=== PATIENT | female | born 1940 | race Caucasian/White ===

== ENCOUNTER 2018-03-27 18:11 | Observation (INO) | payer MEDICARE ==
[~2018-03-27] VITALS: Ht 162.6 cm; Wt 57.7 kg
[2018-03-27 18:56] LABS: BASOPHILS % (AUTO) 0.5 % (0.0-5.0); EOSINOPHILS % (AUTO) 0.7 % (0.0-8.0); LYMPHOCYTES % (AUTO) 8.6 % (21.0-51.0); MEAN CORPUSCULAR HEMOGLOBIN 29.4 pg (27.0-33.0); MEAN CORPUSCULAR HGB CONC 34.1 g/dL (32.0-36.0); MEAN CORPUSCULAR VOLUME 86.4 fL (79-99); MONOCYTES % (AUTO) 5.7 % (3.0-13.0); NEUTROPHILS % (AUTO) 84.5 % (40.0-77.0); PLATELET COUNT (AUTO) 211 K/uL (130-400); RED BLOOD CELL COUNT(AUTO) 4.98 MIL/uL (4.00-5.50); RED CELL DISTRIBUTION WIDTH 14.7 % (11.0-15.5); WHITE BLOOD COUNT (AUTO) 12.6 K/uL (4.8-10.8)
[2018-03-27 19:08] LABS: CREATININE 0.8 mg/dL (0.5-1.5); POTASSIUM 3.3 mmol/L (3.5-5.1)
[2018-03-27 19:12] LABS: ALBUMIN 3.1 g/dL (3.5-5.0); BILIRUBIN,TOTAL 0.3 mg/dL (0.2-1.0); TOTAL PROTEIN, SERUM 6.8 g/dL (6.0-8.3)
[2018-03-27 19:33] LABS: INR 0.94 (0.85-1.15); PARTIAL THROMBOPLASTIN TIME 24.5 SEC (26.3-35.5); PROTHROMBIN TIME 9.9 SEC (9.6-11.6)
[2018-03-27] MEDS ORDERED: ONDANSETRON HCL 4 MG/2 ML VIAL ONE (19:33)
[2018-03-27 19:49] LABS: BILIRUBIN,URINE Negative (NEGATIVE); COLOR,URINE Yellow (YELLOW); GLUCOSE, URINE (UA) Negative (NEGATIVE); KETONES,URINE Negative (NEGATIVE); LEUKOCYTE ESTERASE ,URINE Negative (NEGATIVE); NITRATE,URINE Negative (NEGATIVE); OCCULT BLOOD,URINE Nonhemolyzed Trace (NEGATIVE); PROTEIN,URINE Negative (NEGATIVE)
[2018-03-27 19:58] LABS: APPEARANCE,URINE HAZY (CLEAR)
[2018-03-27 19:59] LABS: BACTERIA,URINE Many /HPF (None Seen); WBC,URINE 0-1 /HPF (0-1)
[2018-03-27 20:00] LABS: AMORPHOUS SEDIMENT,UR Few /LPF (None Seen); SQUAMOUS EPITHELIAL CELL,UR None Seen /HPF (0-2)
[2018-03-27] MEDS ORDERED: CEFTRIAXONE SODIUM 1 GM ONE (20:52)
[2018-03-27] MEDS ORDERED: POTASSIUM CHLORIDE 20 MEQ ERTAB PO ONE (20:52)
[2018-03-27] MEDS ORDERED: SODIUM CHLORIDE 0.9% 50 ML IV ONE (20:53)
[2018-03-27] MEDS ORDERED: ACETAMINOPHEN 325 MG TAB PO PRN ×2 (23:15)
[2018-03-27] MEDS ORDERED: CEFTRIAXONE SODIUM 1 GM IV SCH (23:15)
[2018-03-27] MEDS ORDERED: ONDANSETRON HCL 4 MG/2 ML VIAL IV PRN (23:15)
[2018-03-27] MEDS ORDERED: MORPHINE SULFATE 2 MG/ML 1ML SYG IV PRN (23:15)
[2018-03-28 00:47] VITALS: BP 172/86
[2018-03-28 03:00] VITALS: BP 168/84
[2018-03-28] MEDS ORDERED: ESCI10TA54 PO (03:28)
[2018-03-28] MEDS ORDERED: LISI10TA7 PO (03:30)
[2018-03-28] MEDS ORDERED: SIMV40TA5 PO (03:30)
[2018-03-28 08:00] VITALS: BP 102/64
[2018-03-28] MEDS ORDERED: ENOXAPARIN SODIUM 30 MG/0.3 ML SQ SCH (09:00)
[2018-03-28] MEDS ORDERED: FAMOTIDINE/PF 20 MG/2 ML VIAL IV SCH (09:00)
[2018-03-28] MEDS ORDERED: ATORVASTATIN CALCIUM 20 MG TABLET PO SCH (09:00)
[2018-03-28] MEDS ORDERED: ASPIRIN 81MG TAB.CHEW PO SCH (09:00)
[2018-03-28 12:00] VITALS: BP 155/81
--- NOTE | 2018-03-28 15:00 | NUR ---
PATIENT INSISTING SHE WANTS TO GO AMA. REFUSED MRI / 2D ECHO - DR. BARBER INFORMED AND DR. SENA INFORMED. IV DISCONTINUED WITH INNER CANNULA INTACT. INFORMED PATIENT REGARDING RISKS LEAVING AMA. PATIENT VERBALIZED INSTRUCTIONS/ TEACH BACK. PATIENT INFORMED TO FOLLOW UP WITH PCP AND CONTINUE MEDICATIONS PRESCRIBED.
== END 2018-03-28 16:40 | disposition left against medical advice (07) ==
LOC: EDH 18:11 → EDHIP 22:00 → 3BH 23:28
PROVIDERS: ADMIT Internal Medicine; ATTEND Internal Medicine
DX: R55 Syncope and collapse (principal); E78.5 Hyperlipidemia, unspecified; I10 Essential (primary) hypertension; Z72.0 Tobacco use; Z82.49 Family history of ischemic heart disease and other diseases of the circulatory system; Z86.73 Personal history of transient ischemic attack (TIA), and cerebral infarction without residual deficits
CPT/HCPCS: 36415; 70450; 71045; 80053; 81001; 82550; 84484 ×2; 85025; 85610; 85730; 93005; 93880; 97116; 97161; 99284; G0378 ×19; G8978; G8979; G8980; G8981; G8982; G8983; J0696; J2405; J1650; J3490

== ENCOUNTER 2020-10-25 01:28 | Inpatient (IN) | payer MEDICARE ==
[2020-10-25] VITALS (10 sets, daily range): BP systolic 103–157; BP diastolic 57–87
[~2020-10-25] VITALS: Ht 165.1 cm; Wt 53.5 kg
[~2020-10-25 01:28] MED LIST: ESCI-8 PO; LISI10TA24 PO; SIMV-46 PO
[2020-10-25 02:08] LABS: BASOPHILS % (AUTO) 0.4 % (0.0-5.0); EOSINOPHILS % (AUTO) 0.1 % (0.0-8.0); HEMATOCRIT 37.9 % (36-48); LYMPHOCYTES % (AUTO) 10.7 % (21.0-51.0); MEAN CORPUSCULAR HGB CONC 32.5 g/dL (32.0-36.0); MONOCYTES % (AUTO) 11.7 % (3.0-13.0); NEUTROPHILS % (AUTO) 76.7 % (40.0-77.0); PLATELET COUNT (AUTO) 427 K/uL (130-400); RED BLOOD CELL COUNT(AUTO) 5.12 MIL/uL (4.00-5.50); RED CELL DISTRIBUTION WIDTH 16.8 % (11.0-15.5); WHITE BLOOD COUNT (AUTO) 13.4 K/uL (4.8-10.8)
[2020-10-25 02:18] LABS: CARBON DIOXIDE 27 mmol/L (21-32); CHLORIDE 99 mmol/L (101-111); CREATININE 0.7 mg/dL (0.5-1.5); GLOMERULAR FILTR. RATE CALC 85 mL/min (>60); GLUCOSE,RANDOM 146 mg/dL (70-105); POTASSIUM 3.7 mmol/L (3.5-5.1); SODIUM SERUM 138 mmol/L (136-145); UREA NITROGEN, BLOOD 22 mg/dL (7-18)
[2020-10-25 02:23] LABS: ALANINE AMINOTRANSFERASE 12 U/L (12-78); ALBUMIN 2.8 g/dL (3.5-5.0); ASPARTATE AMINOTRANSFERASE 10 U/L (10-37); BILIRUBIN,TOTAL 0.6 mg/dL (0.2-1.0); CREATINE KINASE, TOTAL 21 U/L (21-232); TOTAL PROTEIN, SERUM 5.9 g/dL (6.0-8.3)
[2020-10-25 02:27] LABS: LIPASE < 50 U/L (114-286)
[2020-10-25 02:33] LABS: PLATELET MORPHOLOGY PLT CLUMPS PRESENT
[2020-10-25] MEDS ORDERED: 0.9%NACL 1000ML 1,000 ML IV ONE (03:30)
[2020-10-25] MEDS ORDERED: MORPHINE 4 MG SYG IV ONE (03:30)
[2020-10-25] MEDS ORDERED: ONDANSETRON 4MG INJ IVP ONE (03:30)
[2020-10-25 04:54] LABS: APPEARANCE,URINE Clear (CLEAR); BILIRUBIN,URINE Moderate (NEGATIVE); COLOR,URINE Dark Yellow (YELLOW); GLUCOSE, URINE (UA) Negative (NEGATIVE); KETONES,URINE >=80 mg/dL (NEGATIVE); LEUKOCYTE ESTERASE ,URINE Small (NEGATIVE); NITRATE,URINE Positive (NEGATIVE); OCCULT BLOOD,URINE Negative (NEGATIVE); PH,URINE 5.5 (5.0-8.0); PROTEIN,URINE POS 1+ mg/dL (NEGATIVE)
[2020-10-25] MEDS ORDERED: DEXTROSE 5 % AND 0.9 % NACL 1,000 ML IV SCH (05:30)
[2020-10-25] MEDS ORDERED: ONDANSETRON 4MG INJ IVP PRN (05:30)
[2020-10-25 06:01] LABS: BASOPHILS % (AUTO) 0.3 % (0.0-5.0); EOSINOPHILS % (AUTO) 3.4 % (0.0-8.0); HEMATOCRIT 35.8 % (36-48); LYMPHOCYTES % (AUTO) 9.7 % (21.0-51.0); MEAN CORPUSCULAR HEMOGLOBIN 24.2 pg (27.0-33.0); MEAN CORPUSCULAR HGB CONC 31.8 g/dL (32.0-36.0); MEAN CORPUSCULAR VOLUME 75.8 fL (79-99); PLATELET COUNT (AUTO) 338 K/uL (130-400); RED BLOOD CELL COUNT(AUTO) 4.72 MIL/uL (4.00-5.50); RED CELL DISTRIBUTION WIDTH 16.9 % (11.0-15.5); WHITE BLOOD COUNT (AUTO) 10.9 K/uL (4.8-10.8)
[2020-10-25 06:03] LABS: BACTERIA,URINE Many /HPF (None Seen); RBC,URINE 0-1 /HPF (0-1); SQUAMOUS EPITHELIAL CELL,UR 0-2 /HPF (0-2)
[2020-10-25] MEDS: LEVOFLOXACIN 500 MG/D5W 100 ML 100 ML IV SCH (06:13)
[2020-10-25 06:20] LABS: ALBUMIN 2.4 g/dL (3.5-5.0); BILIRUBIN,TOTAL 0.5 mg/dL (0.2-1.0); CREATININE 0.6 mg/dL (0.5-1.5); PHOSPHORUS 3.8 mg/dL (2.5-4.9); POTASSIUM 3.4 mmol/L (3.5-5.1); TOTAL PROTEIN, SERUM 5.5 g/dL (6.0-8.3)
[2020-10-25 07:35] LABS: HEMOGLOBIN A1C 5.6 % (4.0-6.0)
[2020-10-25] MEDS: ENOXAPARIN SODIUM 30 MG/0.3 ML SQ SCH ×2 (07:56→09:00)
[2020-10-25] MEDS: METRONIDAZOLE 500MG/100ML BAG 100 ML IVPB SCH ×3 (07:56→22:35)
[2020-10-25] MEDS: MORPHINE 2 MG SYG IVP PRN ×2 (09:45→16:40)
[2020-10-25] MEDS ORDERED: DOCUSATE SODIUM 100 MG CAP PO SCH (14:30)
[2020-10-25] MEDS: DEXTROSE 5 % AND 0.9 % NACL 1,000 ML IV SCH ×2 (18:25→22:35)
[2020-10-26] VITALS: BP 134/68
[2020-10-26 04:05] VITALS: BP 117/72
[2020-10-26] MEDS: LEVOFLOXACIN 500 MG/D5W 100 ML 100 ML IV SCH (04:53)
[2020-10-26] MEDS: DEXTROSE 5 % AND 0.9 % NACL 1,000 ML IV SCH ×3 (04:53→23:30)
[2020-10-26] MEDS: METRONIDAZOLE 500MG/100ML BAG 100 ML IVPB SCH ×3 (06:01→22:29)
[2020-10-26 08:00] VITALS: BP 147/72
[2020-10-26] MEDS: DOCUSATE SODIUM 100 MG CAP PO PRN (08:56)
[2020-10-26 12:00] VITALS: BP 113/71
[2020-10-26] MEDS: MORPHINE 2 MG SYG IVP PRN ×2 (12:54→19:30)
[2020-10-26] MEDS: BISACODYL 10 MG SUPP.RECT RC PRN (15:08)
[2020-10-26] MEDS ORDERED: PEG 3350/NA SULF,BICARB,CL/KCL 4000 ML SOLN PO SCH (15:30)
[2020-10-26 16:00] VITALS: BP 143/79
[2020-10-26 20:00] VITALS: BP 160/74
[2020-10-26] MEDS: CEFTRIAXONE 1G VIAL IVP SCH (20:27)
[2020-10-27] VITALS (7 sets, daily range): BP systolic 118–166; BP diastolic 62–83
[2020-10-27] MEDS: MORPHINE 2 MG SYG IVP PRN ×3 (04:16→18:18)
[2020-10-27] MEDS: LEVOFLOXACIN 500 MG/D5W 100 ML 100 ML IV SCH (04:17)
[2020-10-27] MEDS: BISACODYL 10 MG SUPP.RECT RC PRN (04:17)
[2020-10-27 05:30] LABS: HEMATOCRIT 34.7 % (36-48)
[2020-10-27] MEDS: METRONIDAZOLE 500MG/100ML BAG 100 ML IVPB SCH ×3 (06:13→22:10)
[2020-10-27] MEDS: DEXTROSE 5 % AND 0.9 % NACL 1,000 ML IV SCH ×3 (06:13→23:55)
[2020-10-27] MEDS: ENOXAPARIN SODIUM 30 MG/0.3 ML SQ SCH (09:00)
[2020-10-27] MEDS ORDERED: PEG 3350/NA SULF,BICARB,CL/KCL 4000 ML SOLN PO ONE (18:30)
[2020-10-27] MEDS: CEFTRIAXONE 1G VIAL IVP SCH (20:24)
[2020-10-27] MEDS: DOCUSATE SODIUM 100 MG CAP PO PRN (22:10)
[2020-10-28] MEDS: MORPHINE 2 MG SYG IVP PRN ×3 (03:08→20:45)
[2020-10-28 04:00] VITALS: BP 120/68
[2020-10-28] MEDS: DEXTROSE 5 % AND 0.9 % NACL 1,000 ML IV SCH ×2 (06:22→23:30)
[2020-10-28] MEDS: METRONIDAZOLE 500MG/100ML BAG 100 ML IVPB SCH ×3 (06:22→23:13)
[2020-10-28] MEDS: LEVOFLOXACIN 500 MG/D5W 100 ML 100 ML IV SCH (06:22)
[2020-10-28 07:35] VITALS: BP 160/71
[2020-10-28] MEDS: ENOXAPARIN SODIUM 30 MG/0.3 ML SQ SCH (09:56)
[2020-10-28 11:22] VITALS: BP 123/69
[2020-10-28] MEDS ORDERED: MAGNESIUM CITRATE 296 ML SOLUTION PO ONE (13:30)
[2020-10-28] MEDS: LACTULOSE 20 GM/30 ML UDCUP PO SCH ×2 (13:30→19:30)
[2020-10-28 15:25] VITALS: BP 125/66
[2020-10-28 20:00] VITALS: BP 140/62
[2020-10-28] MEDS: CEFTRIAXONE 1G VIAL IVP SCH (20:45)
[2020-10-29 00:03] VITALS: BP 133/81
[2020-10-29] MEDS: LACTULOSE 20 GM/30 ML UDCUP PO SCH ×4 (01:08→17:33)
[2020-10-29 03:52] VITALS: BP 140/76
[2020-10-29] MEDS: LEVOFLOXACIN 500 MG/D5W 100 ML 100 ML IV SCH (04:32)
[2020-10-29] MEDS: METRONIDAZOLE 500MG/100ML BAG 100 ML IVPB SCH ×3 (05:30→20:53)
[2020-10-29] MEDS: DEXTROSE 5 % AND 0.9 % NACL 1,000 ML IV SCH ×3 (05:30→20:55)
[2020-10-29 08:47] VITALS: BP 144/77
[2020-10-29] MEDS: ENOXAPARIN SODIUM 30 MG/0.3 ML SQ SCH (09:00)
[2020-10-29 11:17] VITALS: BP 142/83
[2020-10-29 16:01] VITALS: BP 153/72
[2020-10-29] MEDS ORDERED: MAGNESIUM CITRATE 296 ML SOLUTION PO ONE (16:30)
[2020-10-29] MEDS: CEFTRIAXONE 1G VIAL IVP SCH (19:38)
[2020-10-29 20:00] VITALS: BP 141/60
[2020-10-29] MEDS: MORPHINE 2 MG SYG IVP PRN (20:54)
[2020-10-30 00:16] VITALS: BP 108/69
[2020-10-30] MEDS: LACTULOSE 20 GM/30 ML UDCUP PO SCH ×4 (01:30→17:41)
[2020-10-30 04:00] VITALS: BP 153/82
[2020-10-30 04:59] LABS: HEMATOCRIT 33.2 % (36-48); MEAN CORPUSCULAR HEMOGLOBIN 24.2 pg (27.0-33.0); MEAN CORPUSCULAR HGB CONC 32.2 g/dL (32.0-36.0); MEAN CORPUSCULAR VOLUME 75.1 fL (79-99); RED BLOOD CELL COUNT(AUTO) 4.42 MIL/uL (4.00-5.50); WHITE BLOOD COUNT (AUTO) 10.4 K/uL (4.8-10.8)
[2020-10-30 05:24] LABS: CREATININE 0.6 mg/dL (0.5-1.5); MAGNESIUM 1.7 mg/dL (1.80-2.40)
[2020-10-30] MEDS: LEVOFLOXACIN 500 MG/D5W 100 ML 100 ML IV SCH (05:32)
[2020-10-30 05:38] LABS: POTASSIUM 2.1 mmol/L (3.5-5.1)
[2020-10-30] MEDS: METRONIDAZOLE 500MG/100ML BAG 100 ML IVPB SCH ×3 (06:42→22:05)
[2020-10-30] MEDS ORDERED: POTASSIUM CHLORIDE 10% ELIXIR 20 MEQ/15 ML UDCUP PO PRN (07:00)
[2020-10-30] MEDS: DEXTROSE 5 % AND 0.9 % NACL 1,000 ML IV SCH ×3 (07:30→23:37)
[2020-10-30 08:00] VITALS: BP 148/82
[2020-10-30] MEDS: KCL 20 MEQ ERTAB PO PRN ×4 (09:08→17:40)
[2020-10-30] MEDS: ENOXAPARIN SODIUM 30 MG/0.3 ML SQ SCH (09:09)
[2020-10-30 12:00] VITALS: BP 148/92
[2020-10-30 16:00] VITALS: BP 149/68
[2020-10-30] MEDS ORDERED: ACETAMINOPHEN 325 MG TAB ONE (16:09)
[2020-10-30] MEDS: ACETAMINOPHEN 325 MG TAB PO PRN ×2 (16:31→23:36)
[2020-10-30 20:00] VITALS: BP 137/60
[2020-10-30] MEDS: CEFTRIAXONE 1G VIAL IVP SCH (20:27)
[2020-10-31] VITALS: BP 157/91
[2020-10-31] MEDS: LACTULOSE 20 GM/30 ML UDCUP PO SCH ×4 (01:30→19:30)
[2020-10-31] MEDS: LEVOFLOXACIN 500 MG/D5W 100 ML 100 ML IV SCH (04:41)
[2020-10-31] MEDS: METRONIDAZOLE 500MG/100ML BAG 100 ML IVPB SCH ×3 (05:39→20:35)
[2020-10-31 05:53] LABS: HEMATOCRIT 36.5 % (36-48); MEAN CORPUSCULAR HGB CONC 31.8 g/dL (32.0-36.0); MEAN CORPUSCULAR VOLUME 75.4 fL (79-99); RED BLOOD CELL COUNT(AUTO) 4.84 MIL/uL (4.00-5.50); RED CELL DISTRIBUTION WIDTH 17.2 % (11.0-15.5); WHITE BLOOD COUNT (AUTO) 11.4 K/uL (4.8-10.8)
[2020-10-31 06:38] LABS: CREATININE 0.5 mg/dL (0.5-1.5); MAGNESIUM 1.7 mg/dL (1.80-2.40)
[2020-10-31] MEDS: DEXTROSE 5 % AND 0.9 % NACL 1,000 ML IV SCH (07:21)
[2020-10-31 08:00] VITALS: BP 143/68
[2020-10-31] MEDS: POTASSIUM CHLORIDE 20MEQ/100ML 100 ML IV PRN (08:09)
[2020-10-31] MEDS: KCL 20 MEQ ERTAB PO PRN ×2 (08:09→11:26)
[2020-10-31] MEDS: LIDOCAINE HCL-MPF 1% 2ML VIAL IV PRN (08:09)
[2020-10-31] MEDS: ENOXAPARIN SODIUM 30 MG/0.3 ML SQ SCH (08:34)
[2020-10-31 12:00] VITALS: BP 123/76
[2020-10-31] MEDS ORDERED: MAGNESIUM 2GM PREMIX 50ML 50 ML IV ONE (13:51)
[2020-10-31] MEDS ORDERED: POTASSIUM CHLORIDE 10% ELIXIR 20 MEQ/15 ML UDCUP PO SCH (14:30)
[2020-10-31 16:00] VITALS: BP 130/81
[2020-10-31 20:00] VITALS: BP 155/85
[2020-10-31] MEDS: CEFTRIAXONE 1G VIAL IVP SCH (20:34)
[2020-10-31 23:51] VITALS: BP 136/74
[2020-11-01] MEDS: DEXTROSE 5 % AND 0.9 % NACL 1,000 ML IV SCH ×3 (00:17→22:38)
[2020-11-01] MEDS: LACTULOSE 20 GM/30 ML UDCUP PO SCH ×4 (01:30→19:30)
[2020-11-01 04:00] VITALS: BP 135/56
[2020-11-01] MEDS: LEVOFLOXACIN 500 MG/D5W 100 ML 100 ML IV SCH (05:12)
[2020-11-01 05:52] LABS: HEMATOCRIT 36.9 % (36-48); MEAN CORPUSCULAR HEMOGLOBIN 23.9 pg (27.0-33.0); MEAN CORPUSCULAR HGB CONC 31.7 g/dL (32.0-36.0); MEAN CORPUSCULAR VOLUME 75.3 fL (79-99); PLATELET COUNT (AUTO) 381 K/uL (130-400); RED CELL DISTRIBUTION WIDTH 17.4 % (11.0-15.5); WHITE BLOOD COUNT (AUTO) 14.3 K/uL (4.8-10.8)
[2020-11-01 06:23] LABS: CREATININE 0.5 mg/dL (0.5-1.5); MAGNESIUM 2.1 mg/dL (1.80-2.40); POTASSIUM 3.7 mmol/L (3.5-5.1)
[2020-11-01] MEDS: METRONIDAZOLE 500MG/100ML BAG 100 ML IVPB SCH ×3 (06:38→22:04)
[2020-11-01 07:35] LABS: LYMPHOCYTES % (MANUAL) 8 % (22-44); MAN.DIFF COMMENT-IMPRESSION MANUAL DIFFERENTIAL; MONOCYTES % (MANUAL) 4 % (2-9); PLATELET MORPHOLOGY COMMENT ADEQUATE; SEGMENTED NEUTROPHILS % 88 % (40-70)
[2020-11-01 08:00] VITALS: BP 118/69
[2020-11-01] MEDS: ENOXAPARIN SODIUM 30 MG/0.3 ML SQ SCH (09:02)
[2020-11-01 12:00] VITALS: BP_SYST 120; BP_DIAS 70; BP_DIAS 76
[2020-11-01] MEDS ORDERED: DIATR MEGLU/DIATRIZOATE SODIUM 30 ML BOTTLE ONE (12:59)
[2020-11-01] MEDS ORDERED: IOHEXOL-350 75 ML VIAL IV ONE (13:21)
[2020-11-01] MEDS ORDERED: MORPHINE 2 MG SYG ONE (15:07)
[2020-11-01] MEDS ORDERED: MORPHINE 2 MG SYG IVP ONE (15:30)
[2020-11-01 16:00] VITALS: BP 118/70
[2020-11-01 20:05] VITALS: BP 150/77
[2020-11-01] MEDS: CEFTRIAXONE 1G VIAL IVP SCH (20:35)
[2020-11-01 23:27] VITALS: BP 155/88
[2020-11-02] MEDS: LACTULOSE 20 GM/30 ML UDCUP PO SCH ×4 (01:30→20:39)
[2020-11-02 03:33] VITALS: BP 150/82
[2020-11-02] MEDS: LEVOFLOXACIN 500 MG/D5W 100 ML 100 ML IV SCH (04:51)
[2020-11-02] MEDS: METRONIDAZOLE 500MG/100ML BAG 100 ML IVPB SCH ×3 (06:29→20:39)
[2020-11-02] MEDS: DEXTROSE 5 % AND 0.9 % NACL 1,000 ML IV SCH ×3 (07:30→23:20)
[2020-11-02 08:18] VITALS: BP 134/71
[2020-11-02] MEDS: ENOXAPARIN SODIUM 30 MG/0.3 ML SQ SCH (10:04)
[2020-11-02 11:37] VITALS: BP 143/77
[2020-11-02 17:02] VITALS: BP 159/74
[2020-11-02 20:24] VITALS: BP 101/82
[2020-11-02] MEDS: CEFTRIAXONE 1G VIAL IVP SCH (20:39)
[2020-11-02] MEDS: MORPHINE 2 MG SYG IVP PRN (21:42)
[2020-11-02 23:38] VITALS: BP 142/89
[2020-11-03] MEDS: LACTULOSE 20 GM/30 ML UDCUP PO SCH ×4 (01:30→19:30)
[2020-11-03 03:39] VITALS: BP 150/77
[2020-11-03] MEDS: LEVOFLOXACIN 500 MG/D5W 100 ML 100 ML IV SCH (04:38)
[2020-11-03] MEDS: DEXTROSE 5 % AND 0.9 % NACL 1,000 ML IV SCH ×2 (04:38→16:05)
[2020-11-03] MEDS: METRONIDAZOLE 500MG/100ML BAG 100 ML IVPB SCH ×3 (05:51→21:03)
[2020-11-03 08:27] VITALS: BP 119/73
[2020-11-03 10:04] LABS: HEMATOCRIT 34.4 % (36-48); MEAN CORPUSCULAR HEMOGLOBIN 24.3 pg (27.0-33.0); MEAN CORPUSCULAR VOLUME 75.9 fL (79-99); RED BLOOD CELL COUNT(AUTO) 4.53 MIL/uL (4.00-5.50); RED CELL DISTRIBUTION WIDTH 17.5 % (11.0-15.5); WHITE BLOOD COUNT (AUTO) 11.7 K/uL (4.8-10.8)
[2020-11-03] MEDS: ENOXAPARIN SODIUM 30 MG/0.3 ML SQ SCH (10:11)
[2020-11-03 10:22] LABS: CREATININE 0.6 mg/dL (0.5-1.5); POTASSIUM 3.1 mmol/L (3.5-5.1)
[2020-11-03 11:41] VITALS: BP 132/68
[2020-11-03] MEDS ORDERED: PEG 3350/NA SULF,BICARB,CL/KCL 4000 ML SOLN PO ONE (14:00)
[2020-11-03 16:43] VITALS: BP 120/79
[2020-11-03] MEDS: CEFTRIAXONE 1G VIAL IVP SCH (19:30)
[2020-11-03 19:52] VITALS: BP 137/81
[2020-11-03] MEDS: MORPHINE 2 MG SYG IVP PRN (23:04)
[2020-11-03 23:18] VITALS: BP 131/76
[2020-11-04] VITALS (7 sets, daily range): BP systolic 121–178; BP diastolic 72–88
[2020-11-04] MEDS: DEXTROSE 5 % AND 0.9 % NACL 1,000 ML IV SCH ×4 (00:08→23:58)
[2020-11-04] MEDS: LACTULOSE 20 GM/30 ML UDCUP PO SCH ×4 (01:30→19:30)
[2020-11-04] MEDS: LEVOFLOXACIN 500 MG/D5W 100 ML 100 ML IV SCH (04:43)
[2020-11-04] MEDS: METRONIDAZOLE 500MG/100ML BAG 100 ML IVPB SCH ×3 (05:32→23:24)
[2020-11-04 05:49] LABS: HEMATOCRIT 34.6 % (36-48); MEAN CORPUSCULAR HEMOGLOBIN 23.7 pg (27.0-33.0); MEAN CORPUSCULAR HGB CONC 31.5 g/dL (32.0-36.0); MEAN CORPUSCULAR VOLUME 75.4 fL (79-99); RED BLOOD CELL COUNT(AUTO) 4.59 MIL/uL (4.00-5.50); WHITE BLOOD COUNT (AUTO) 11.4 K/uL (4.8-10.8)
[2020-11-04 06:09] LABS: CREATININE 0.7 mg/dL (0.5-1.5); MAGNESIUM 1.7 mg/dL (1.80-2.40)
[2020-11-04 06:13] LABS: POTASSIUM 2.8 mmol/L (3.5-5.1)
[2020-11-04] MEDS: POTASSIUM CHLORIDE 20MEQ/100ML 100 ML IV PRN (06:17)
[2020-11-04] MEDS: ENOXAPARIN SODIUM 30 MG/0.3 ML SQ SCH (09:00)
[2020-11-04] MEDS ORDERED: LIDOCAINE PF 100MG/5ML (2%) SYRINGE 5ML ONE (11:38)
[2020-11-04] MEDS ORDERED: ROCURONIUM 10MG/1ML SYR 10 MG/ML ML ONE (11:39)
[2020-11-04] MEDS ORDERED: PROPOFOL 10 MG/ML 20ML VIAL IV ONE (11:39)
[2020-11-04] MEDS ORDERED: GLYCOPYRROLATE 1 MG/5 ML SYRINGE ONE (11:39)
[2020-11-04] MEDS ORDERED: ONDANSETRON 4MG INJ ONE (11:39)
[2020-11-04] MEDS ORDERED: DEXAMETHASONE SOD PHOSPHATE 10MG/ML 1ML VIAL ONE (11:39)
[2020-11-04] MEDS ORDERED: MIDAZOLAM HCL 1 MG/ML 2ML VIAL ONE (11:39)
[2020-11-04] MEDS ORDERED: NEOSTIGMINE 5MG/5ML SYR IV ONE (11:39)
[2020-11-04] MEDS ORDERED: FENTANYL CITRATE PF 50 MCG/1 ML 2ML VIAL ONE (11:41)
[2020-11-04] MEDS ORDERED: DIATR MEGLU/DIATRIZOATE SODIUM 30 ML BOTTLE ONE (14:46)
[2020-11-04] MEDS: KCL 20 MEQ ERTAB PO PRN (16:52)
[2020-11-04] MEDS ORDERED: IOHEXOL-350 75 ML VIAL IV ONE (16:57)
[2020-11-04] MEDS: CEFTRIAXONE 1G VIAL IVP SCH (20:45)
[2020-11-04] MEDS: MORPHINE 2 MG SYG IVP PRN (20:46)
[2020-11-05] VITALS (7 sets, daily range): BP systolic 142–178; BP diastolic 83–99
[2020-11-05] MEDS: LACTULOSE 20 GM/30 ML UDCUP PO SCH ×4 (01:30→19:30)
[2020-11-05] MEDS: METRONIDAZOLE 500MG/100ML BAG 100 ML IVPB SCH ×3 (05:16→21:57)
[2020-11-05 05:18] LABS: HEMATOCRIT 35.8 % (36-48); MEAN CORPUSCULAR HEMOGLOBIN 23.9 pg (27.0-33.0); MEAN CORPUSCULAR HGB CONC 31.8 g/dL (32.0-36.0); MEAN CORPUSCULAR VOLUME 75.2 fL (79-99); RED BLOOD CELL COUNT(AUTO) 4.76 MIL/uL (4.00-5.50); RED CELL DISTRIBUTION WIDTH 18.1 % (11.0-15.5); WHITE BLOOD COUNT (AUTO) 11.8 K/uL (4.8-10.8)
[2020-11-05 05:31] LABS: CREATININE 0.6 mg/dL (0.5-1.5); MAGNESIUM 1.6 mg/dL (1.80-2.40)
[2020-11-05 05:38] LABS: POTASSIUM 2.9 mmol/L (3.5-5.1)
[2020-11-05] MEDS: LIDOCAINE HCL-MPF 1% 2ML VIAL IV PRN (06:11)
[2020-11-05] MEDS: POTASSIUM CHLORIDE 20MEQ/100ML 100 ML IV PRN (06:12)
[2020-11-05] MEDS: LEVOFLOXACIN 500 MG/D5W 100 ML 100 ML IV SCH (08:00)
[2020-11-05] MEDS: DEXTROSE 5 % AND 0.9 % NACL 1,000 ML IV SCH ×2 (08:00→22:03)
[2020-11-05] MEDS: ENOXAPARIN SODIUM 30 MG/0.3 ML SQ SCH (09:33)
[2020-11-05] MEDS: POTASSIUM CHLORIDE 10% ELIXIR 20 MEQ/15 ML UDCUP PO SCH (14:25)
[2020-11-05] MEDS ORDERED: PEG 3350/NA SULF,BICARB,CL/KCL 4000 ML SOLN PO SCH (17:30)
[2020-11-05] MEDS: MORPHINE 2 MG SYG IVP PRN (18:40)
[2020-11-05] MEDS: CEFTRIAXONE 1G VIAL IVP SCH (21:57)
[2020-11-06] VITALS: BP 165/95
[2020-11-06] MEDS: LACTULOSE 20 GM/30 ML UDCUP PO SCH ×4 (01:30→17:25)
[2020-11-06] MEDS: MORPHINE 2 MG SYG IVP PRN ×2 (02:10→20:14)
[2020-11-06 04:58] LABS: HEMATOCRIT 36.9 % (36-48); MEAN CORPUSCULAR HEMOGLOBIN 23.7 pg (27.0-33.0); MEAN CORPUSCULAR HGB CONC 31.4 g/dL (32.0-36.0); MEAN CORPUSCULAR VOLUME 75.3 fL (79-99); RED BLOOD CELL COUNT(AUTO) 4.9 MIL/uL (4.00-5.50); RED CELL DISTRIBUTION WIDTH 18.1 % (11.0-15.5); WHITE BLOOD COUNT (AUTO) 13.3 K/uL (4.8-10.8)
[2020-11-06 05:11] LABS: CREATININE 0.6 mg/dL (0.5-1.5); MAGNESIUM 1.7 mg/dL (1.80-2.40); POTASSIUM 3.3 mmol/L (3.5-5.1)
[2020-11-06] MEDS: METRONIDAZOLE 500MG/100ML BAG 100 ML IVPB SCH ×3 (06:04→21:04)
[2020-11-06] MEDS: LEVOFLOXACIN 500 MG/D5W 100 ML 100 ML IV SCH (06:04)
[2020-11-06 07:09] VITALS: BP 158/86
[2020-11-06] MEDS: ENOXAPARIN SODIUM 30 MG/0.3 ML SQ SCH (09:59)
[2020-11-06] MEDS: DEXTROSE 5 % AND 0.9 % NACL 1,000 ML IV SCH ×3 (09:59→23:30)
[2020-11-06 10:53] VITALS: BP 122/73
[2020-11-06] MEDS: POTASSIUM CHLORIDE 10% ELIXIR 20 MEQ/15 ML UDCUP PO SCH (14:22)
[2020-11-06] MEDS: ACETAMINOPHEN 325 MG TAB PO PRN (15:21)
[2020-11-06 16:16] VITALS: BP 138/81
[2020-11-06 20:00] VITALS: BP 147/86
[2020-11-06] MEDS: CEFTRIAXONE 1G VIAL IVP SCH (20:13)
[2020-11-06 23:58] VITALS: BP 147/86
[2020-11-07] MEDS: LACTULOSE 20 GM/30 ML UDCUP PO SCH ×4 (01:30→19:30)
[2020-11-07] MEDS: ACETAMINOPHEN 325 MG TAB PO PRN (02:05)
[2020-11-07] MEDS: DEXTROSE 5 % AND 0.9 % NACL 1,000 ML IV SCH ×2 (02:12→16:39)
[2020-11-07 03:53] VITALS: BP 146/79
[2020-11-07] MEDS: LEVOFLOXACIN 500 MG/D5W 100 ML 100 ML IV SCH (04:48)
[2020-11-07] MEDS: METRONIDAZOLE 500MG/100ML BAG 100 ML IVPB SCH ×3 (05:50→22:38)
[2020-11-07 07:13] LABS: CREATININE 0.7 mg/dL (0.5-1.5); POTASSIUM 3.2 mmol/L (3.5-5.1)
[2020-11-07 07:28] VITALS: BP 119/63
[2020-11-07] MEDS: MORPHINE 2 MG SYG IVP PRN ×3 (08:34→20:16)
[2020-11-07] MEDS: ENOXAPARIN SODIUM 30 MG/0.3 ML SQ SCH (09:00)
[2020-11-07 11:01] VITALS: BP 148/86
[2020-11-07 12:00] LABS: INR 1.05 (0.85-1.15); PROTHROMBIN TIME 11.4 SEC (9.6-11.6)
[2020-11-07] MEDS: POTASSIUM CHLORIDE 10% ELIXIR 20 MEQ/15 ML UDCUP PO SCH (14:00)
[2020-11-07 15:34] VITALS: BP 131/70
[2020-11-07 20:00] VITALS: BP 149/91
[2020-11-07] MEDS: CEFTRIAXONE 1G VIAL IVP SCH (20:16)
[2020-11-08] VITALS (42 sets, daily range): BP systolic 61–163; BP diastolic 24–98
[2020-11-08] MEDS: LACTULOSE 20 GM/30 ML UDCUP PO SCH ×4 (01:30→19:30)
[2020-11-08] MEDS: DEXTROSE 5 % AND 0.9 % NACL 1,000 ML IV SCH ×2 (03:59→07:30)
[2020-11-08] MEDS: MORPHINE 2 MG SYG IVP PRN (04:02)
[2020-11-08 04:07] LABS: HEMATOCRIT 36.4 % (36-48); MEAN CORPUSCULAR HGB CONC 31.6 g/dL (32.0-36.0); RED BLOOD CELL COUNT(AUTO) 4.79 MIL/uL (4.00-5.50); RED CELL DISTRIBUTION WIDTH 18.7 % (11.0-15.5); WHITE BLOOD COUNT (AUTO) 12.7 K/uL (4.8-10.8)
[2020-11-08 04:23] LABS: CREATININE 0.7 mg/dL (0.5-1.5); MAGNESIUM 1.8 mg/dL (1.80-2.40)
[2020-11-08] MEDS: LIDOCAINE HCL-MPF 1% 2ML VIAL IV PRN (04:46)
[2020-11-08] MEDS: POTASSIUM CHLORIDE 20MEQ/100ML 100 ML IV PRN ×2 (04:46→17:53)
[2020-11-08] MEDS: ENOXAPARIN SODIUM 30 MG/0.3 ML SQ SCH (07:54)
[2020-11-08] MEDS ORDERED: LACTATED RINGERS 1000ML 1,000 ML IV ONE (08:28)
[2020-11-08] MEDS ORDERED: SUCCINYLCHOLINE CHLORIDE 20 MG/ML 10 ML VIAL ONE (08:32)
[2020-11-08] MEDS ORDERED: PROPOFOL 10 MG/ML 20ML VIAL IV ONE (08:32)
[2020-11-08] MEDS ORDERED: LIDOCAINE HCL MPF 1% 5ML VIAL ONE (08:32)
[2020-11-08] MEDS ORDERED: MIDAZOLAM HCL 1 MG/ML 2ML VIAL ONE (08:32)
[2020-11-08] MEDS ORDERED: ROCURONIUM 10MG/1ML SYR 10 MG/ML ML ONE ×3 (08:32→10:59)
[2020-11-08] MEDS ORDERED: FENTANYL CITRATE PF 50 MCG/1 ML 2ML VIAL ONE (08:36)
[2020-11-08] MEDS ORDERED: EPHEDRINE SULFATE 50 MG/ML AMPULE ONE (09:22)
[2020-11-08] MEDS ORDERED: PHENYLEPHRINE HCL 10 MG/ML 1ML VIAL IV ONE (09:43)
[2020-11-08 09:53] LABS: ABG BASE EXCESS -3.9 mmol/L (-2.0-3.0); ABG HCO3 21.3 mmol/L (21.0-28.0); ABG OXYGEN SATURATION 99.3 % (95.0-99.0); ABG PCO2 39 mmHg (32-45)
[2020-11-08] MEDS ORDERED: ALBUMIN (HUMAN) 5% 250 ML IV ONE (10:19)
[2020-11-08 13:59] LABS: ABG BASE EXCESS -1.6 mmol/L (-2.0-3.0); ABG HCO3 21.5 mmol/L (21.0-28.0); ABG OXYGEN SATURATION 96.3 % (95.0-99.0); ABG PCO2 31 mmHg (32-45)
[2020-11-08] MEDS: POTASSIUM CHLORIDE 10% ELIXIR 20 MEQ/15 ML UDCUP PO SCH (14:00)
[2020-11-08 14:27] LABS: MEAN CORPUSCULAR HEMOGLOBIN 24.3 pg (27.0-33.0); MEAN CORPUSCULAR VOLUME 78.5 fL (79-99); PLATELET COUNT (AUTO) 372 K/uL (130-400); RED BLOOD CELL COUNT(AUTO) 4.97 MIL/uL (4.00-5.50); RED CELL DISTRIBUTION WIDTH 19.1 % (11.0-15.5); WHITE BLOOD COUNT (AUTO) 12.4 K/uL (4.8-10.8)
[2020-11-08] MEDS ORDERED: ZOSYN 3.375GM+NS 50ML 3.38 GM in 0.9%NACL 50ML 50 ML IV SCH (14:30)
[2020-11-08] MEDS: LACTATED RINGERS 1000ML 1,000 ML IV SCH (14:30)
[2020-11-08] MEDS ORDERED: MIDAZOLAM 100MG-0.9% NS 100ML 100ML BAG IV SCH (15:00)
[2020-11-08 15:03] LABS: ALBUMIN 2.3 g/dL (3.5-5.0); BILIRUBIN,TOTAL 0.5 mg/dL (0.2-1.0); CREATININE 0.9 mg/dL (0.5-1.5); TOTAL PROTEIN, SERUM 4.4 g/dL (6.0-8.3)
[2020-11-08] MEDS: FENTANYL 2500MCG+NS 250ML 250 ML IV SCH ×2 (15:15→15:16)
[2020-11-08] MEDS: ZOSYN 3.375GM +NS 50ML IV SCH (17:00)
[2020-11-08 17:58] LABS: CREATININE 0.9 mg/dL (0.5-1.5); POTASSIUM 3.5 mmol/L (3.5-5.1)
[2020-11-08] MEDS: IPRATROPIUM/ALBUTEROL SULFATE 3 ML SOLUTION IH SCH (19:00)
[2020-11-08] MEDS: FAMOTIDINE 20MG VIAL IV SCH (20:15)
[2020-11-08] MEDS ORDERED: NOREPINEPHRIN 4MG/NS 250ML 250 ML IV ONE (20:44)
[2020-11-08] MEDS ORDERED: POTASSIUM CHLORIDE 10MEQ/100ML 100 ML IV ONE (20:44)
[2020-11-09] VITALS (38 sets, daily range): BP systolic 66–117; BP diastolic 46–77
[2020-11-09] MEDS: IPRATROPIUM/ALBUTEROL SULFATE 3 ML SOLUTION IH SCH ×5 (00:17→23:22)
[2020-11-09 01:06] LABS: CREATININE 0.8 mg/dL (0.5-1.5); POTASSIUM 3.7 mmol/L (3.5-5.1)
[2020-11-09] MEDS: LACTULOSE 20 GM/30 ML UDCUP PO SCH ×2 (01:30→07:30)
[2020-11-09] MEDS: ZOSYN 3.375GM +NS 50ML IV SCH ×4 (01:47→22:10)
[2020-11-09 04:32] LABS: HEMATOCRIT 33.7 % (36-48); MEAN CORPUSCULAR HEMOGLOBIN 24.6 pg (27.0-33.0); MEAN CORPUSCULAR VOLUME 76.8 fL (79-99); RED BLOOD CELL COUNT(AUTO) 4.39 MIL/uL (4.00-5.50); WHITE BLOOD COUNT (AUTO) 14.9 K/uL (4.8-10.8)
[2020-11-09 04:59] LABS: MAGNESIUM 1.6 mg/dL (1.80-2.40); PHOSPHORUS 4.9 mg/dL (2.5-4.9); POTASSIUM 3.8 mmol/L (3.5-5.1)
[2020-11-09] MEDS: LACTATED RINGERS 1000ML 1,000 ML IV SCH ×2 (05:27→10:42)
[2020-11-09] MEDS: NOREPINEPHRIN 4MG/NS 250ML 250 ML IV SCH ×2 (05:30→19:50)
[2020-11-09] MEDS: MAGNESIUM 2GM PREMIX 50ML 50 ML IV PRN (07:44)
[2020-11-09 07:57] LABS: ABG BASE EXCESS -1.6 mmol/L (-2.0-3.0); ABG HCO3 21.9 mmol/L (21.0-28.0); ABG OXYGEN SATURATION 97.9 % (95.0-99.0); ABG PCO2 33 mmHg (32-45)
[2020-11-09 08:01] LABS: ABG BASE EXCESS -2.9 mmol/L (-2.0-3.0); ABG HCO3 19.6 mmol/L (21.0-28.0); ABG OXYGEN SATURATION 98.5 % (95.0-99.0); ABG PCO2 27 mmHg (32-45)
[2020-11-09] MEDS: POTASSIUM CHLORIDE 10% ELIXIR 20 MEQ/15 ML UDCUP PO SCH (09:53)
[2020-11-09] MEDS: FLUCONAZOLE 400 MG/NS 200 ML 200 ML IV SCH (09:57)
[2020-11-09] MEDS: FAMOTIDINE 20MG VIAL IV SCH ×2 (09:58→20:11)
[2020-11-09] MEDS ORDERED: LACTATED RINGERS 1000ML IV SCH (11:00)
[2020-11-09] MEDS ORDERED: M.V.I. IV [ADULT] 10 ML in CLINIMIX-E4.25%AA/D5+LYT2000ML 2,000 ML IV SCH (11:30)
[2020-11-09 13:15] LABS: CREATININE 1.2 mg/dL (0.5-1.5)
[2020-11-09] MEDS: FAT EMULSIONS 20% 250ML 250 ML IV SCH (13:15)
[2020-11-09] MEDS: FENTANYL 2500MCG+NS 250ML 250 ML IV SCH (15:28)
[2020-11-10] VITALS (58 sets, daily range): BP systolic 84–130; BP diastolic 41–89
[2020-11-10 04:51] LABS: HEMATOCRIT 28.2 % (36-48); MEAN CORPUSCULAR HEMOGLOBIN 24.1 pg (27.0-33.0); MEAN CORPUSCULAR HGB CONC 31.6 g/dL (32.0-36.0); MEAN CORPUSCULAR VOLUME 76.4 fL (79-99); RED BLOOD CELL COUNT(AUTO) 3.69 MIL/uL (4.00-5.50); RED CELL DISTRIBUTION WIDTH 19.4 % (11.0-15.5); WHITE BLOOD COUNT (AUTO) 12.6 K/uL (4.8-10.8)
[2020-11-10 05:17] LABS: ALBUMIN 1.3 g/dL (3.5-5.0); BILIRUBIN,TOTAL 0.2 mg/dL (0.2-1.0); MAGNESIUM 2.1 mg/dL (1.80-2.40); PHOSPHORUS 4.4 mg/dL (2.5-4.9); POTASSIUM 3.6 mmol/L (3.5-5.1); TOTAL PROTEIN, SERUM 3.9 g/dL (6.0-8.3)
[2020-11-10] MEDS: NOREPINEPHRIN 4MG/NS 250ML 250 ML IV SCH (05:48)
[2020-11-10] MEDS: IPRATROPIUM/ALBUTEROL SULFATE 3 ML SOLUTION IH SCH ×3 (07:13→18:59)
[2020-11-10] MEDS: FAMOTIDINE 20MG VIAL IV SCH ×2 (08:07→20:38)
[2020-11-10] MEDS: ZOSYN 3.375GM +NS 50ML IV SCH ×3 (08:07→22:38)
[2020-11-10] MEDS: FLUCONAZOLE 400 MG/NS 200 ML 200 ML IV SCH (08:07)
[2020-11-10] MEDS: FAT EMULSIONS 20% 250ML 250 ML IV SCH (10:28)
[2020-11-10] MEDS ORDERED: M.V.I. IV [ADULT] 10 ML in CLINIMIX-E4.25%AA/D5+LYT2000ML 2,000 ML IV SCH (12:30)
[2020-11-10] MEDS ORDERED: 0.9%NACL 50ML 50 ML IV ONE (20:22)
[2020-11-10] MEDS: MORPHINE 2 MG SYG IVP PRN (21:07)
[2020-11-10] MEDS ORDERED: ALBUMIN (HUMAN) 25% 100 ML IV PRN (22:00)
[2020-11-10] MEDS ORDERED: METOPROLOL TARTRATE 1 MG/ML 5ML VIAL IV PRN (22:00)
[2020-11-10] MEDS ORDERED: PHENYLEPHRINE HCL 50 MG in 0.9% NACL 250ML 245 ML IV PRN (22:00)
[2020-11-10] MEDS: FUROSEMIDE 20MG VIAL IV SCH (22:36)
[2020-11-10] MEDS ORDERED: PROPOFOL 1000 MG/100 ML 100 ML IV ONE (23:27)
[2020-11-10] MEDS ORDERED: PROPOFOL 1000 MG/100 ML 100 ML IV SCH (23:30)
[2020-11-11] VITALS (28 sets, daily range): BP systolic 92–124; BP diastolic 47–71
[2020-11-11] MEDS ORDERED: 0.9% NACL 500ML IV.SOLN 500 ML IV ONE (04:03)
[2020-11-11 04:07] LABS: HEMATOCRIT 23.3 % (36-48); MEAN CORPUSCULAR HEMOGLOBIN 24.3 pg (27.0-33.0); MEAN CORPUSCULAR HGB CONC 31.8 g/dL (32.0-36.0); MEAN CORPUSCULAR VOLUME 76.4 fL (79-99); RED BLOOD CELL COUNT(AUTO) 3.05 MIL/uL (4.00-5.50); RED CELL DISTRIBUTION WIDTH 19.4 % (11.0-15.5); WHITE BLOOD COUNT (AUTO) 9.4 K/uL (4.8-10.8)
[2020-11-11 04:24] LABS: ALBUMIN 1.1 g/dL (3.5-5.0); BILIRUBIN,TOTAL 0.2 mg/dL (0.2-1.0); CREATININE 0.7 mg/dL (0.5-1.5); MAGNESIUM 1.9 mg/dL (1.80-2.40); PHOSPHORUS 5.4 mg/dL (2.5-4.9); TOTAL PROTEIN, SERUM 3.9 g/dL (6.0-8.3)
[2020-11-11 04:53] LABS: ABG BASE EXCESS 1.2 mmol/L (-2.0-3.0); ABG HCO3 24.1 mmol/L (21.0-28.0); ABG OXYGEN SATURATION 95.7 % (95.0-99.0); ABG PCO2 31 mmHg (32-45)
[2020-11-11] MEDS: IPRATROPIUM/ALBUTEROL SULFATE 3 ML SOLUTION IH SCH ×5 (07:13→23:44)
[2020-11-11] MEDS: ZOSYN 3.375GM +NS 50ML IV SCH ×3 (07:41→22:08)
[2020-11-11] MEDS: FAMOTIDINE 20MG VIAL IV SCH ×2 (08:34→20:55)
[2020-11-11] MEDS: FLUCONAZOLE 400 MG/NS 200 ML 200 ML IV SCH (08:34)
[2020-11-11] MEDS: FUROSEMIDE 20MG VIAL IV SCH ×2 (09:13→20:56)
[2020-11-11] MEDS: FAT EMULSIONS 20% 250ML 250 ML IV SCH (09:15)
[2020-11-11 09:54] LABS: ABG BASE EXCESS 1.4 mmol/L (-2.0-3.0); ABG HCO3 24.3 mmol/L (21.0-28.0); ABG OXYGEN SATURATION 94.9 % (95.0-99.0); ABG PCO2 32 mmHg (32-45)
[2020-11-11] MEDS: MAGNESIUM 2GM PREMIX 50ML 50 ML IV PRN (10:57)
[2020-11-11 14:14] LABS: HEMATOCRIT 23.4 % (36-48)
[2020-11-11] MEDS: BALSAM PERU/CASTOR OIL 60 GM TUBE TP SCH ×2 (15:00→20:56)
[2020-11-11] MEDS ORDERED: METOPROLOL TARTRATE 1 MG/ML 5ML VIAL IV PRN (16:00)
[2020-11-11] MEDS ORDERED: CLINIMIX-E4.25%AA/D5+LYT2000ML 2,000 ML IV SCH (16:30)
[2020-11-11] MEDS: 0.9%NACL 50ML 50 ML IV SCH (22:08)
[2020-11-12] VITALS (29 sets, daily range): BP systolic 82–120; BP diastolic 43–72
[2020-11-12 06:20] LABS: HEMATOCRIT 24.3 % (36-48); MEAN CORPUSCULAR HEMOGLOBIN 23.7 pg (27.0-33.0); MEAN CORPUSCULAR HGB CONC 30.9 g/dL (32.0-36.0); MEAN CORPUSCULAR VOLUME 76.7 fL (79-99); RED BLOOD CELL COUNT(AUTO) 3.17 MIL/uL (4.00-5.50); RED CELL DISTRIBUTION WIDTH 19.2 % (11.0-15.5); WHITE BLOOD COUNT (AUTO) 9.6 K/uL (4.8-10.8)
[2020-11-12] MEDS: IPRATROPIUM/ALBUTEROL SULFATE 3 ML SOLUTION IH SCH ×3 (06:26→23:27)
[2020-11-12 06:30] LABS: CREATININE 0.5 mg/dL (0.5-1.5)
[2020-11-12] MEDS: 0.9%NACL 50ML 50 ML IV SCH ×3 (06:33→23:05)
[2020-11-12] MEDS: ZOSYN 3.375GM +NS 50ML IV SCH ×3 (06:33→23:05)
[2020-11-12 06:36] LABS: POTASSIUM 2.7 mmol/L (3.5-5.1)
[2020-11-12] MEDS: POTASSIUM CHLORIDE 20MEQ/100ML 100 ML IV PRN ×2 (06:43→09:21)
[2020-11-12] MEDS: FLUCONAZOLE 400 MG/NS 200 ML 200 ML IV SCH (08:46)
[2020-11-12] MEDS: FAMOTIDINE 20MG VIAL IV SCH ×2 (08:46→21:17)
[2020-11-12] MEDS: BALSAM PERU/CASTOR OIL 60 GM TUBE TP SCH ×3 (08:47→21:17)
[2020-11-12] MEDS: FUROSEMIDE 20MG VIAL IV SCH ×2 (10:54→21:17)
[2020-11-12] MEDS ORDERED: CLINIMIX-E4.25%AA/D5+LYT2000ML 2,000 ML IV SCH (18:00)
[2020-11-12] MEDS: METOPROLOL TARTRATE 25 MG TAB PO SCH (21:00)
[2020-11-13] VITALS (12 sets, daily range): BP systolic 86–109; BP diastolic 42–65
[2020-11-13] MEDS: 0.9%NACL 50ML 50 ML IV SCH ×2 (06:16→15:00)
[2020-11-13] MEDS: ZOSYN 3.375GM +NS 50ML IV SCH ×2 (06:16→15:00)
[2020-11-13 06:33] LABS: HEMATOCRIT 23.4 % (36-48); MEAN CORPUSCULAR HEMOGLOBIN 24.4 pg (27.0-33.0); MEAN CORPUSCULAR HGB CONC 32.1 g/dL (32.0-36.0); RED BLOOD CELL COUNT(AUTO) 3.08 MIL/uL (4.00-5.50); RED CELL DISTRIBUTION WIDTH 18.9 % (11.0-15.5); WHITE BLOOD COUNT (AUTO) 9.7 K/uL (4.8-10.8)
[2020-11-13 06:47] LABS: ALBUMIN 1.1 g/dL (3.5-5.0); BILIRUBIN,TOTAL 0.4 mg/dL (0.2-1.0); CREATININE 0.5 mg/dL (0.5-1.5); MAGNESIUM 1.6 mg/dL (1.80-2.40); PHOSPHORUS 3.4 mg/dL (2.5-4.9); TOTAL PROTEIN, SERUM 4.2 g/dL (6.0-8.3)
[2020-11-13 06:55] LABS: POTASSIUM 2.9 mmol/L (3.5-5.1)
[2020-11-13] MEDS: POTASSIUM CHLORIDE 20MEQ/100ML 100 ML IV PRN ×2 (06:56→16:30)
[2020-11-13] MEDS: IPRATROPIUM/ALBUTEROL SULFATE 3 ML SOLUTION IH SCH ×2 (07:34→12:54)
[2020-11-13] MEDS: METOPROLOL TARTRATE 25 MG TAB PO SCH (09:00)
[2020-11-13] MEDS ORDERED: FUROSEMIDE 20MG VIAL IV SCH (09:00)
[2020-11-13] MEDS: FLUCONAZOLE 400 MG/NS 200 ML 200 ML IV SCH (10:11)
[2020-11-13] MEDS: FAMOTIDINE 20MG VIAL IV SCH (10:12)
[2020-11-13] MEDS: BALSAM PERU/CASTOR OIL 60 GM TUBE TP SCH ×2 (10:12→14:00)
[2020-11-13] MEDS: FAT EMULSIONS 20% 250ML 250 ML IV SCH (10:13)
== END 2020-11-13 16:30 | DRG 329 ==
LOC: EDH 01:28 → OBSVTOIN 05:03 → EDHIP 05:03 → 3CH 10:10 → 3BH 10-29 19:54 → 2DH 11-08 12:31
PROVIDERS: ADMIT Internal Medicine Infectious Disease; ATTEND Internal Medicine Infectious Disease
PROC: 0DJD8ZZ Inspection of Lower Intestinal Tract, Via Natural or Artificial Opening Endoscopic (ICD-10-PCS; 2020-11-04)
PROC: 0BH17EZ Insertion of Endotracheal Airway into Trachea, Via Natural or Artificial Opening (ICD-10-PCS; 2020-11-08)
PROC: 0DTG0ZZ Resection of Left Large Intestine, Open Approach (ICD-10-PCS; principal; 2020-11-08 08:55)
PROC: 5A1945Z Respiratory Ventilation, 24-96 Consecutive Hours (ICD-10-PCS; 2020-11-08 08:55)
PROC: 02HV33Z Insertion of Infusion Device into Superior Vena Cava, Percutaneous Approach (ICD-10-PCS; 2020-11-09)
PROC: 0D9670Z Drainage of Stomach with Drainage Device, Via Natural or Artificial Opening (ICD-10-PCS; 2020-11-10)
DX: K56.699 Other intestinal obstruction unspecified as to partial versus complete obstruction (principal); A41.9 Sepsis, unspecified organism; R65.21 Severe sepsis with septic shock; J15.6 Pneumonia due to other Gram-negative bacteria; J96.90 Respiratory failure, unspecified, unspecified whether with hypoxia or hypercapnia; N39.0 Urinary tract infection, site not specified; C18.9 Malignant neoplasm of colon, unspecified; J44.0 Chronic obstructive pulmonary disease with (acute) lower respiratory infection; J81.1 Chronic pulmonary edema; K63.2 Fistula of intestine; Z68.1 Body mass index [BMI] 19.9 or less, adult; N19 Unspecified kidney failure; I10 Essential (primary) hypertension; E86.0 Dehydration; E87.6 Hypokalemia; B96.20 Unspecified Escherichia coli [E. coli] as the cause of diseases classified elsewhere; D64.9 Anemia, unspecified; D69.6 Thrombocytopenia, unspecified; E11.51 Type 2 diabetes mellitus with diabetic peripheral angiopathy without gangrene; E78.5 Hyperlipidemia, unspecified; F17.200 Nicotine dependence, unspecified, uncomplicated; I48.0 Paroxysmal atrial fibrillation; R93.3 Abnormal findings on diagnostic imaging of other parts of digestive tract; L89.151 Pressure ulcer of sacral region, stage 1; R62.7 Adult failure to thrive; Z53.20 Procedure and treatment not carried out because of patient's decision for unspecified reasons; Z20.822 Contact with and (suspected) exposure to COVID-19; Z86.73 Personal history of transient ischemic attack (TIA), and cerebral infarction without residual deficits; Z83.3 Family history of diabetes mellitus; Z82.49 Family history of ischemic heart disease and other diseases of the circulatory system; Y83.8 Other surgical procedures as the cause of abnormal reaction of the patient, or of later complication, without mention of misadventure at the time of the procedure; Y82.8 Other medical devices associated with adverse incidents; Y92.89 Other specified places as the place of occurrence of the external cause
CPT/HCPCS: 36415; 36600; 45378; 71045; 74018; 74176; 74178; 80048; 80053; 81001; 82378; 82435; 82550; 82803; 82947; 82948; 83036; 83605; 83690; 83735; 84100; 84132; 84145; 84295; 84484; 85014; 85018; 85025; 85027; 85610; 86850; 86900; 86901; 86923; 87040; 87077; 87088; 87186; 87635; 88309; 88360; 92610; 93005; 94002; 94003; 94640; 94664; 94667; 94668; 97039; A4344; C1751; C1894; G0378; J0330; J0696; J1100; J1450; J1650; J1940; J1956; J2001; J2250; J2270; J2370; J2405; J2543; J2704; J2710; J3010; J3475; J3480; J3490; J7030; J7040; J7042; J7120; P9045; Q9963; Q9967

== ENCOUNTER 2021-01-18 14:07 | Emergency (ER) | payer MEDICARE, OTHER ==
[~2021-01-18] VITALS: Ht 160 cm; Wt 59.0 kg
[2021-01-18 15:24] VITALS: BP 159/68
== END 2021-01-18 16:13 | disposition left against medical advice (07) ==
LOC: EDH 14:07
DX: T85.848A Pain due to other internal prosthetic devices, implants and grafts, initial encounter (principal); Y83.8 Other surgical procedures as the cause of abnormal reaction of the patient, or of later complication, without mention of misadventure at the time of the procedure; Y92.89 Other specified places as the place of occurrence of the external cause

== ENCOUNTER 2022-10-14 09:52 | Inpatient (IN) | payer MEDICARE ==
[2022-10-14] VITALS (8 sets, daily range): BP systolic 121–130; BP diastolic 72–85; PULSE 71–114; RESP 18–24; O2SAT 94–98
[~2022-10-14] VITALS: Ht 162.6 cm; Wt 55.4 kg
[2022-10-14] MEDS ORDERED: DILTIAZEM 25MG INJ IVP ONE ×2 (10:00→22:52)
[2022-10-14] MEDS ORDERED: DILTIAZEM 125 MG/25 ML INJ IV ONE (10:02)
[2022-10-14] MEDS: DILTIAZEM 125 MG/25 ML INJ 125 MG in 0.9%NACL 100ML 100 ML IV PRN ×2 (10:27→23:04)
[2022-10-14 10:51] LABS: CREATININE 0.7 mg/dL (0.5-1.5); POTASSIUM 3.2 mmol/L (3.5-5.1)
[2022-10-14 10:56] LABS: BASOPHILS # (AUTO) 0.06 K/uL (0.00-0.20); BASOPHILS % (AUTO) 0.8 % (0.0-5.0); EOSINOPHILS # (AUTO) 0.12 K/uL (0.00-0.70); EOSINOPHILS % (AUTO) 1.5 % (0.0-8.0); IMMATURE GRANULOCYTE ABSOLUTE 0.04 K/uL (0-1); LYMPHOCYTES % (AUTO) 12.8 % (21.0-51.0); MEAN CORPUSCULAR HEMOGLOBIN 28.8 pg (27.0-33.0); MEAN CORPUSCULAR HGB CONC 32.9 g/dL (32.0-36.0); MEAN CORPUSCULAR VOLUME 87.5 fL (79-99); MONOCYTES # (AUTO) 0.7 K/uL (0.1-1.0); MONOCYTES % (AUTO) 9.3 % (3.0-13.0); NEUTROPHILS % (AUTO) 75.1 % (40.0-77.0); RED CELL DISTRIBUTION WIDTH 13.6 % (11.0-15.5)
[2022-10-14 11:00] LABS: ALBUMIN 2.7 g/dL (3.5-5.0); BILIRUBIN,TOTAL 0.4 mg/dL (0.2-1.0); MAGNESIUM 1.7 mg/dL (1.80-2.40); TOTAL PROTEIN, SERUM 6.7 g/dL (6.0-8.3)
[2022-10-14] MEDS ORDERED: POTASSIUM BICARB/CIT AC 25 MEQ TABLET.EFF PO STA (11:13)
[2022-10-14 11:26] LABS: PLATELET MORPHOLOGY COMMENT PLT CLUMPS PRESENT
[2022-10-14 11:42] LABS: PLATELET COUNT (AUTO) 212 K/uL (130-400)
[2022-10-14] MEDS ORDERED: SODIUM CHLORIDE 3% FOR INHALATION 4 ML/AMP VIAL.NEB IH ONE ×3 (12:22→22:39)
[2022-10-14] MEDS ORDERED: IPRATROPIUM 0.5 MG/2.5 ML INH IH PRN (12:30)
[2022-10-14] MEDS ORDERED: CEFTRIAXONE 1G VIAL IVPB SCH (12:30)
[2022-10-14 13:18] LABS: SARS-CoV-2, RNA, NAAT NEGATIVE SARS CoV-2 (NEGATIVE)
[2022-10-14 13:23] LABS: INFLUENZA TYPE A Negative For Type A (NEGATIVE); INFLUENZA TYPE B Negative For Type B (NEGATIVE)
[2022-10-14 14:09] LABS: INR 0.94 (0.85-1.15); PROTHROMBIN TIME 10.9 SEC (9.6-11.6)
[2022-10-14 14:11] LABS: PARTIAL THROMBOPLASTIN TIME 27.9 SEC (26.3-35.5)
[2022-10-14] MEDS: MAGNESIUM 2GM PREMIX 50ML 50 ML IV PRN (14:47)
[2022-10-14] MEDS ORDERED: DILTIAZEM 180MG SR CAP PO ONE (16:00)
[2022-10-14 16:48] LABS: ABG BASE EXCESS 0.1 mmol/L (-2.0-3.0); ABG HCO3 23.4 mmol/L (21.0-28.0); ABG OXYGEN SATURATION 95.7 % (95.0-99.0); ABG PCO2 35 mmHg (32-45); DEVICE COMMENT RR; PO2, ARTERIAL BG 74.7 mmHg (83.0-108.0); VENT MODE, BG NC (ROOM AIR)
[2022-10-14] MEDS: AZITHROMYCIN 500MG+NS 250ML IVPB SCH (17:42)
[2022-10-14] MEDS: CEFTRIAXONE 2GM VIAL IVPB SCH (17:42)
[2022-10-14] MEDS: SOLU-MEDROL 40MG VIAL IVP SCH ×2 (17:42→23:21)
[2022-10-14 19:16] LABS: APPEARANCE,URINE CLOUDY (CLEAR); BACTERIA,URINE MOD /HPF (None Seen); BILIRUBIN,URINE NEGATIVE (NEGATIVE); COLOR,URINE YELLOW (YELLOW); GLUCOSE, URINE (UA) NEGATIVE (NEGATIVE); KETONES,URINE NEGATIVE (NEGATIVE); LEUKOCYTE ESTERASE ,URINE 75 Leu/uL (NEGATIVE); MUCUS,URINE FEW LPF (None Seen); NITRATE,URINE 2+ (NEGATIVE); OCCULT BLOOD,URINE MODERATE (NEGATIVE); PROTEIN,URINE 10 mg/dL (NEGATIVE); SQUAMOUS EPITHELIAL CELL,UR MOD /HPF (0-2); UROBILINOGEN,URINE 0.2 mg/dL (0.2-1.0); WBC,URINE 26-50 /HPF (0-1)
[2022-10-14] MEDS: IPRATROPIUM 0.5 MG/2.5 ML INH IH SCH ×2 (19:21→23:06)
[2022-10-14] MEDS: BUDESONIDE 0.5 MG/2 ML INH IH SCH (19:21)
[2022-10-14] MEDS: MONTELUKAST SODIUM 10 MG TAB PO SCH (20:58)
[2022-10-14] MEDS: APIXABAN 2.5 MG TABLET PO SCH (20:58)
[2022-10-14] MEDS ORDERED: DOXYCYCLINE HYCLATE 100 MG TABLET PO SCH (21:00)
[2022-10-15] VITALS (16 sets, daily range): BP systolic 94–140; BP diastolic 51–90; PULSE 60–142; RESP 18–20; O2SAT 96–98
[2022-10-15 04:10] LABS: BASOPHILS # (AUTO) 0.02 K/uL (0.00-0.20); BASOPHILS % (AUTO) 0.2 % (0.0-5.0); HEMATOCRIT 38.8 % (36-48); IMMATURE GRANULOCYTE ABSOLUTE 0.06 K/uL (0-1); LYMPHOCYTES # (AUTO) 0.5 K/uL (1.0-4.8); LYMPHOCYTES % (AUTO) 6.6 % (21.0-51.0); MEAN CORPUSCULAR HEMOGLOBIN 28.4 pg (27.0-33.0); MEAN CORPUSCULAR VOLUME 88.8 fL (79-99); MONOCYTES # (AUTO) 0.1 K/uL (0.1-1.0); MONOCYTES % (AUTO) 0.9 % (3.0-13.0); NEUTROPHILS # (AUTO) 7.3 K/uL (1.8-7.7); NEUTROPHILS % (AUTO) 91.6 % (40.0-77.0); PLATELET COUNT (AUTO) 183 K/uL (130-400); RED BLOOD CELL COUNT(AUTO) 4.37 MIL/uL (4.00-5.50); RED CELL DISTRIBUTION WIDTH 13.6 % (11.0-15.5)
[2022-10-15 04:14] LABS: CREATININE 0.6 mg/dL (0.5-1.5); POTASSIUM 4.1 mmol/L (3.5-5.1)
[2022-10-15 04:24] LABS: WBC MORPHOLOGY CONSISTENT W/DIFF
[2022-10-15] MEDS: BUDESONIDE 0.5 MG/2 ML INH IH SCH ×2 (06:41→18:39)
[2022-10-15] MEDS: IPRATROPIUM 0.5 MG/2.5 ML INH IH SCH ×4 (06:41→23:02)
[2022-10-15] MEDS: APIXABAN 2.5 MG TABLET PO SCH ×2 (08:28→21:21)
[2022-10-15] MEDS: SOLU-MEDROL 40MG VIAL IVP SCH ×2 (08:28→21:21)
[2022-10-15] MEDS: DILTIAZEM 180MG SR CAP PO SCH (08:30)
[2022-10-15] MEDS: FUROSEMIDE 20MG VIAL IV SCH ×2 (09:48→21:19)
[2022-10-15] MEDS: AZITHROMYCIN 500MG+NS 250ML IVPB SCH (17:10)
[2022-10-15] MEDS: CEFTRIAXONE 2GM VIAL IVPB SCH (17:10)
[2022-10-15] MEDS: MONTELUKAST SODIUM 10 MG TAB PO SCH (21:21)
[2022-10-16] VITALS (15 sets, daily range): BP systolic 109–138; BP diastolic 62–77; PULSE 65–140; RESP 18–20; O2SAT 95–96
[2022-10-16 03:58] LABS: HEMATOCRIT 36.4 % (36-48); MEAN CORPUSCULAR HEMOGLOBIN 28.8 pg (27.0-33.0); MEAN CORPUSCULAR HGB CONC 33.5 g/dL (32.0-36.0); MEAN CORPUSCULAR VOLUME 86.1 fL (79-99); RED BLOOD CELL COUNT(AUTO) 4.23 MIL/uL (4.00-5.50); RED CELL DISTRIBUTION WIDTH 13.8 % (11.0-15.5); WHITE BLOOD COUNT (AUTO) 15.5 K/uL (4.8-10.8)
[2022-10-16 04:04] LABS: ALBUMIN 2.6 g/dL (3.5-5.0); BILIRUBIN,TOTAL 0.2 mg/dL (0.2-1.0); CREATININE 0.7 mg/dL (0.5-1.5); MAGNESIUM 1.9 mg/dL (1.80-2.40); POTASSIUM 3.6 mmol/L (3.5-5.1); TOTAL PROTEIN, SERUM 6.2 g/dL (6.0-8.3)
[2022-10-16] MEDS: MAGNESIUM 2GM PREMIX 50ML 50 ML IV PRN (04:37)
[2022-10-16] MEDS: BUDESONIDE 0.5 MG/2 ML INH IH SCH ×2 (06:29→18:13)
[2022-10-16] MEDS: IPRATROPIUM 0.5 MG/2.5 ML INH IH SCH ×4 (06:29→22:53)
[2022-10-16] MEDS ORDERED: POTASSIUM CHLORIDE 10% ELIXIR 20 MEQ/15 ML UDCUP PO PRN (06:30)
[2022-10-16] MEDS ORDERED: KCL 20 MEQ ERTAB PO ONE (06:30)
[2022-10-16] MEDS: SOLU-MEDROL 40MG VIAL IVP SCH (08:24)
[2022-10-16] MEDS: DILTIAZEM 180MG SR CAP PO SCH (08:25)
[2022-10-16] MEDS: APIXABAN 2.5 MG TABLET PO SCH ×2 (08:25→20:03)
[2022-10-16] MEDS: ACETYLCYSTEINE 10% 100MG/ML 4ML VIAL IH SCH ×2 (11:13→22:53)
[2022-10-16] MEDS: BUMETANIDE 1MG/4ML VIAL IVP SCH ×2 (11:30→20:03)
[2022-10-16] MEDS: AZITHROMYCIN 500MG+NS 250ML IVPB SCH (17:06)
[2022-10-16] MEDS: CEFTRIAXONE 2GM VIAL IVPB SCH (19:55)
[2022-10-16] MEDS: MONTELUKAST SODIUM 10 MG TAB PO SCH (20:03)
[2022-10-17] VITALS (19 sets, daily range): BP systolic 120–167; BP diastolic 74–106; PULSE 52–132; RESP 18–25; O2SAT 88–96
[2022-10-17] MEDS: IPRATROPIUM 0.5 MG/2.5 ML INH IH SCH ×6 (02:17→21:48)
[2022-10-17 03:48] LABS: HEMATOCRIT 37.7 % (36-48); MEAN CORPUSCULAR HEMOGLOBIN 28.1 pg (27.0-33.0); MEAN CORPUSCULAR HGB CONC 32.1 g/dL (32.0-36.0); MEAN CORPUSCULAR VOLUME 87.7 fL (79-99); RED BLOOD CELL COUNT(AUTO) 4.3 MIL/uL (4.00-5.50); RED CELL DISTRIBUTION WIDTH 13.9 % (11.0-15.5); WHITE BLOOD COUNT (AUTO) 14.8 K/uL (4.8-10.8)
[2022-10-17 04:03] LABS: ALBUMIN 2.8 g/dL (3.5-5.0); BILIRUBIN,TOTAL 0.1 mg/dL (0.2-1.0); CREATININE 0.7 mg/dL (0.5-1.5); MAGNESIUM 2.3 mg/dL (1.80-2.40); POTASSIUM 3.6 mmol/L (3.5-5.1)
[2022-10-17] MEDS: ACETYLCYSTEINE 10% 100MG/ML 4ML VIAL IH SCH ×2 (07:34→18:48)
[2022-10-17] MEDS: BUDESONIDE 0.5 MG/2 ML INH IH SCH ×2 (07:34→18:47)
[2022-10-17] MEDS: DILTIAZEM 180MG SR CAP PO SCH (08:37)
[2022-10-17] MEDS: APIXABAN 2.5 MG TABLET PO SCH ×2 (08:37→21:44)
[2022-10-17] MEDS: BUMETANIDE 1MG/4ML VIAL IVP SCH (08:37)
[2022-10-17] MEDS ORDERED: PREDNISONE 20 MG TABLET PO ONE (09:00)
[2022-10-17] MEDS: CEFTRIAXONE 2GM VIAL IVPB SCH (16:28)
[2022-10-17] MEDS: AZITHROMYCIN 500MG+NS 250ML IVPB SCH (16:28)
[2022-10-17] MEDS: MONTELUKAST SODIUM 10 MG TAB PO SCH (21:44)
[2022-10-17] MEDS: FAMOTIDINE 20MG TAB PO SCH (21:44)
[2022-10-18] VITALS (11 sets, daily range): BP systolic 124–155; BP diastolic 68–94; PULSE 63–121; RESP 17–25; O2SAT 98–99
[2022-10-18] MEDS: IPRATROPIUM 0.5 MG/2.5 ML INH IH SCH ×4 (02:04→14:06)
[2022-10-18 05:54] LABS: BASOPHILS # (AUTO) 0.02 K/uL (0.00-0.20); BASOPHILS % (AUTO) 0.2 % (0.0-5.0); HEMATOCRIT 38.2 % (36-48); IMMATURE GRANULOCYTE ABSOLUTE 0.28 K/uL (0-1); LYMPHOCYTES # (AUTO) 1.2 K/uL (1.0-4.8); LYMPHOCYTES % (AUTO) 10.9 % (21.0-51.0); MEAN CORPUSCULAR HEMOGLOBIN 28.2 pg (27.0-33.0); MEAN CORPUSCULAR HGB CONC 32.2 g/dL (32.0-36.0); MEAN CORPUSCULAR VOLUME 87.6 fL (79-99); MONOCYTES # (AUTO) 0.9 K/uL (0.1-1.0); MONOCYTES % (AUTO) 8.7 % (3.0-13.0); NEUTROPHILS # (AUTO) 8.3 K/uL (1.8-7.7); NEUTROPHILS % (AUTO) 77.6 % (40.0-77.0); PLATELET COUNT (AUTO) 135 K/uL (130-400); RED BLOOD CELL COUNT(AUTO) 4.36 MIL/uL (4.00-5.50); RED CELL DISTRIBUTION WIDTH 13.7 % (11.0-15.5); WHITE BLOOD COUNT (AUTO) 10.7 K/uL (4.8-10.8)
[2022-10-18 06:19] LABS: ALBUMIN 2.6 g/dL (3.5-5.0); BILIRUBIN,TOTAL 0.2 mg/dL (0.2-1.0); CREATININE 0.9 mg/dL (0.5-1.5); POTASSIUM 3.6 mmol/L (3.5-5.1)
[2022-10-18] MEDS: BUDESONIDE 0.5 MG/2 ML INH IH SCH (06:34)
[2022-10-18] MEDS: ACETYLCYSTEINE 10% 100MG/ML 4ML VIAL IH SCH (06:36)
[2022-10-18] MEDS: DILTIAZEM 180MG SR CAP PO SCH (08:38)
[2022-10-18] MEDS: KCL 20 MEQ ERTAB PO PRN ×2 (08:38→11:14)
[2022-10-18] MEDS: FAMOTIDINE 20MG TAB PO SCH (08:39)
[2022-10-18] MEDS: APIXABAN 2.5 MG TABLET PO SCH (08:40)
[2022-10-18] MEDS ORDERED: PREDNISONE 20 MG TABLET PO SCH (09:00)
[2022-10-18] MEDS ORDERED: BUMETANIDE 1 MG TAB PO SCH (09:00)
[2022-10-18] MEDS ORDERED: LACTULOSE 20 GM/30 ML UDCUP PO ONE (11:30)
== END 2022-10-18 17:28 | DRG 193 ==
LOC: EDH 09:52 → EDHIP 12:11 → 2AH 15:46 → 3AH 10-17 05:59
PROVIDERS: ADMIT Internal Medicine; ATTEND Internal Medicine
DX: J15.9 Unspecified bacterial pneumonia (principal); I50.33 Acute on chronic diastolic (congestive) heart failure; J96.01 Acute respiratory failure with hypoxia; E44.0 Moderate protein-calorie malnutrition; J44.0 Chronic obstructive pulmonary disease with (acute) lower respiratory infection; J44.1 Chronic obstructive pulmonary disease with (acute) exacerbation; Z20.822 Contact with and (suspected) exposure to COVID-19; I11.0 Hypertensive heart disease with heart failure; I48.0 Paroxysmal atrial fibrillation; F17.200 Nicotine dependence, unspecified, uncomplicated; E78.5 Hyperlipidemia, unspecified; E88.09 Other disorders of plasma-protein metabolism, not elsewhere classified; E87.6 Hypokalemia; E83.42 Hypomagnesemia; I34.0 Nonrheumatic mitral (valve) insufficiency; Z82.49 Family history of ischemic heart disease and other diseases of the circulatory system; Z85.038 Personal history of other malignant neoplasm of large intestine; Z83.3 Family history of diabetes mellitus; Z90.49 Acquired absence of other specified parts of digestive tract; Z93.1 Gastrostomy status
CPT/HCPCS: 36415; 36600; 71045; 80048; 80053; 81001; 82803; 83735; 83880; 84145; 84443; 84484; 85025; 85027; 85610; 85730; 87088; 87635; 87804; 93005; 93306; 93356; 94640; 94664; 94760; 97039; 99291; G0378; J0456; J0696; J1940; J2920; J3475; J3490; J7608